=== PATIENT | female | born 1955 | race Caucasian/White ===

== ENCOUNTER → 2019-11-30 | Outpatient (CLI) | payer MEDICARE ==
[~2019-11-30] MED LIST: ALBU2.5V11 NEB; ALBU8.5H8 INH; ATOR20TA37 PO; BUDE10.2 INH; ENAL10TA PO; LEVO50TA5 PO; MONT10TA11 PO; OMEP20TA62 PO
[2019-11-30 09:10] LABS: BASOPHILS # (AUTO) 0.04 x10^3/uL (0-0.1); BASOPHILS % (AUTO) 1 % (0-1); EOSINOPHILS # (AUTO) 0.36 x10^3/uL (0-0.4); EOSINOPHILS % (AUTO) 4 % (1-7); LYMPHOCYTES # (AUTO) 1.74 x10^3/uL (1-3.4); LYMPHOCYTES % (AUTO) 21 % (22-44); MD NO; MEAN CORPUSCULAR HEMOGLOBIN 25.4 pg (27.0-34.8); MEAN CORPUSCULAR HGB CONC 30.7 g/dL (32.4-35.8); MEAN CORPUSCULAR VOLUME 82.8 fL (80-100); MEAN PLATELET VOLUME 7.4 fL (7.4-10.4); MONOCYTES # (AUTO) 0.75 x10^3/uL (0.2-0.8); MONOCYTES % (AUTO) 9 % (2-9); NEUTROPHILS # (AUTO) 5.35 x10^3/uL (1.8-6.8); NEUTROPHILS % (AUTO) 65 % (42-75); PLATELET COUNT 522 x10^3/uL (130-400); RED BLOOD COUNT 3.71 x10^6/uL (3.82-5.3); RED CELL DISTRIBUTION WIDTH 15.9 % (9.6-15.2)
[2019-11-30 09:18] LABS: INTERNATIONAL NORMALIZED RATIO 0.95 (0.93-1.1); PROTHROMBIN TIME 9.8 Seconds (9.6-11.5)
[2019-11-30 09:21] LABS: ALANINE AMINOTRANSFERASE 19 U/L (12-78); ALBUMIN 3.5 g/dL (3.4-5.0); ANION GAP 6 mmol/L (5-15); CALCIUM 9.2 mg/dL (8.5-10.1); CHLORIDE 110 mmol/L (98-107)
[2019-11-30 09:23] LABS: ALKALINE PHOSPHATASE 100 U/L (45-117); BILIRUBIN,TOTAL 0.4 mg/dL (0.2-1.0); TOTAL PROTEIN 7.2 g/dL (6.4-8.2)
== END | disposition home or self-care (01) ==
LOC: STAR 07:41
PROVIDERS: ATTEND Orthopaedic Surgery
DX: Z01.818 Encounter for other preprocedural examination (principal); Z11.59 Encounter for screening for other viral diseases; M17.11 Unilateral primary osteoarthritis, right knee; M25.561 Pain in right knee
CPT/HCPCS: 36415; 80053; 83036; 85025; 85610; 85730; 87081; 87635; 87806; 93005; G0475

== ENCOUNTER 2019-12-04 09:29 | Observation (INO) | payer MEDICARE ==
[~2019-12-04] VITALS: Ht 157.5 cm; Wt 86.0 kg
[~2019-12-04 09:29] MED LIST changes: +EPHEDRINE 50 MG/ML, 1ML IVPush PRN; +EPINEPHRINE 1 MG/ML, 1ML ONE; +FENTANYL PF 100 MCG/2ML IV PRN; +HYDROmorphone 1 MG/ML, 1ML INJ IVPush PRN; +KETOROLAC 60 MG/2 ML ONE; +LABETALOL 5MG/ML, 20ML IV PRN; +MEPERIDINE/PF 25MG/0.5ML IVPush PRN; +ONDANSETRON 2MG/ML, 2ML IVPush PRN; +OXYcodone 5 MG/5 ML ORAL.SOL UDC PO PRN; +PROMETHAZINE 25 MG/ML, 1ML IVPush PRN; +ROPIvacaine/PF 0.2%, 20 ML ONE; +SODIUM CHLORIDE 0.9% 100 ML ONE; +TRANEXAMIC ACID 100 MG/ML, 10ML ONE; +VANCOMYCIN 1,000 MG ONE; +hydrALAzine 20 MG/ML, 1ML IV PRN
[2019-12-04 10:00] VITALS: BP 137/86
[2019-12-04] MEDS ORDERED: GABAPENTIN 300 MG CAPSULE PO ONE (10:00)
[2019-12-04] MEDS ORDERED: CHLORHEXIDINE 15 ML UDC MM ONE (10:00)
[2019-12-04] MEDS ORDERED: ACETAMINOPHEN 500 MG TABLET PO ONE (10:00)
[2019-12-04] MEDS: LACTATED RINGERS 1,000 ML IV SCH ×3 (10:07→19:03)
[2019-12-04] MEDS ORDERED: MIDAZOLAM 1 MG/ML, 2ML ONE (11:11)
[2019-12-04] MEDS ORDERED: FENTANYL PF 250 MCG/5ML ONE ×2 (11:11→13:05)
[2019-12-04] MEDS ORDERED: BUPIVACAINE/PF 0.5% ONE (11:12)
[2019-12-04] MEDS ORDERED: ALUMINUM/MAG/SIMETHICONE 30 ML UDC PO PRN (12:30)
[2019-12-04] MEDS: KETOROLAC 30 MG/1 ML IV SCH ×2 (12:30→20:15)
[2019-12-04] MEDS ORDERED: HYDROmorphone 1 MG/ML, 1ML INJ IVPush PRN (12:30)
[2019-12-04] MEDS ORDERED: METOCLOPRAMIDE 10MG TABLET PO PRN (12:30)
[2019-12-04] MEDS ORDERED: DIPHENHYDRAMINE 25 MG CAPSULE PO PRN (12:30)
[2019-12-04] MEDS ORDERED: DIPHENHYDRAMINE 50 MG/ML, 1ML IVPush PRN (12:30)
[2019-12-04] MEDS ORDERED: SENNA/DOCUSATE TABLET PO PRN (12:30)
[2019-12-04] MEDS ORDERED: ONDANSETRON 2MG/ML, 2ML IVPush PRN (12:30)
[2019-12-04] MEDS ORDERED: OXYcodone/APAP 5/325MG TABLET PO PRN (12:30)
[2019-12-04] MEDS ORDERED: PSYLLIUM PACKET PO PRN (12:30)
[2019-12-04] MEDS ORDERED: MAGNESIUM HYDROXIDE 8%, 30ML UDC PO PRN (12:30)
[2019-12-04] MEDS ORDERED: ACETAMINOPHEN 650 MG/20.3 ML UDC PO PRN (12:30)
[2019-12-04] MEDS ORDERED: POLYETHYLENE GLYCOL 17 GM PACKET PO PRN (12:30)
[2019-12-04] MEDS ORDERED: ONDANSETRON 4 MG TABLET PO PRN (12:30)
[2019-12-04] MEDS ORDERED: LIDOCAINE PF 2%, 5ML ONE (12:43)
[2019-12-04] MEDS ORDERED: SUCCINYLCHOLINE 20 MG/ML, 10ML ONE (12:48)
[2019-12-04] MEDS ORDERED: ONDANSETRON 2MG/ML, 2ML ONE (12:48)
[2019-12-04] MEDS ORDERED: DEXAMETHASONE 4 MG/ML, 1ML ONE (12:48)
[2019-12-04] MEDS ORDERED: PROPOFOL 10 MG/ML, 20ML ONE (12:48)
[2019-12-04] MEDS ORDERED: CEFAZOLIN 1,000 MG ONE (12:48)
[2019-12-04] MEDS ORDERED: TRANEXAMIC ACID 1,000 MG in SODIUM CHLORIDE 0.9% 100 ML IVPB ONE (14:30)
[2019-12-04 16:05] VITALS: BP 112/62
[2019-12-04] MEDS ORDERED: ALBUTEROL HFA 90 MCG/SPRAY INH PRN (16:30)
[2019-12-04] MEDS: POTASSIUM CHLORIDE 20 MEQ in D5%-0.45% NACL 1,000 ML IV SCH (18:26)
[2019-12-04 19:31] VITALS: BP 112/69
[2019-12-04] MEDS: CEFAZOLIN PMX 1GM/50ML 50 ML IVPB SCH (20:15)
[2019-12-04] MEDS: ASPIRIN 81 MG TABLET EC PO SCH (20:18)
[2019-12-04] MEDS: DOCUSATE 100 MG CAPSULE PO SCH (20:18)
[2019-12-04] MEDS ORDERED: ATORVASTATIN 20 MG TABLET PO SCH (21:00)
[2019-12-05] VITALS (7 sets, daily range): BP systolic 95–134; BP diastolic 60–79
[2019-12-05] MEDS: POTASSIUM CHLORIDE 20 MEQ in D5%-0.45% NACL 1,000 ML IV SCH (02:14)
[2019-12-05] MEDS: KETOROLAC 30 MG/1 ML IV SCH (05:02)
[2019-12-05] MEDS ORDERED: LEVOTHYROXINE 50 MCG TABLET PO SCH (06:00)
[2019-12-05] MEDS ORDERED: DEXAMETHASONE 4 MG/ML, 1ML IVPush SCH (06:00)
[2019-12-05] MEDS ORDERED: OMEPRAZOLE 20 MG CAPSULE.DR PO SCH (06:00)
[2019-12-05] MEDS: CEFAZOLIN PMX 1GM/50ML 50 ML IVPB SCH (06:02)
[2019-12-05] MEDS ORDERED: ENALAPRIL 10 MG TABLET PO SCH (09:00)
[2019-12-05] MEDS ORDERED: MONTELUKAST 10 MG TABLET PO SCH (09:00)
[2019-12-05] MEDS ORDERED: TAMSULOSIN 0.4 MG CAP.ER.24H PO SCH (09:00)
[2019-12-05] MEDS ORDERED: FLUTICASONE/VILANTEROL 200-25MCG/INH INH SCH (09:00)
[2019-12-05] MEDS: DOCUSATE 100 MG CAPSULE PO SCH (10:10)
[2019-12-05] MEDS: ASPIRIN 81 MG TABLET EC PO SCH (10:10)
== END 2019-12-05 15:27 | disposition home or self-care (01) ==
LOC: OUT 09:29 → ORIP 12:29 → 4NE 16:04
PROVIDERS: ADMIT Orthopaedic Surgery; ATTEND Orthopaedic Surgery
DX: M17.11 Unilateral primary osteoarthritis, right knee (principal); J45.909 Unspecified asthma, uncomplicated; I10 Essential (primary) hypertension; E03.9 Hypothyroidism, unspecified; D64.9 Anemia, unspecified; Z87.891 Personal history of nicotine dependence; Z96.651 Presence of right artificial knee joint
CPT/HCPCS: 27447; 36415; 73560; 85014; 85018; 86850; 86900; 86923; 96361; 96365; 96366; 96375; 96376; 97161; C1713; C1776; G0378; J0171; J0330; J0690; J1100; J1885; J2250; J2405; J2704; J2795; J3010; J3480; J7120; P9016; S0020; J3370